=== PATIENT | female | born 1960 | race Caucasian/White ===

== ENCOUNTER 2017-12-02 12:36 | Emergency (ER) | payer BC, MEDICARE ==
[~2017-12-02] VITALS: Ht 165.1 cm; Wt 124.6 kg
[~2017-12-02 12:36] MED LIST: CEPH-571 PO
[2017-12-02] MEDS ORDERED: ketorolac trometh inj. 60 MG/2 ML VIAL IM ONE (12:55)
[2017-12-02] MEDS ORDERED: HYDROcodone/acetaminophen 10/325mg tab PO ONE (12:55)
[2017-12-02] MEDS ORDERED: ORPH100T2 PO (13:12)
[2017-12-02] MEDS ORDERED: HYDR-565 PO (13:12)
[2017-12-02] MEDS ORDERED: IBUP-1984 PO (13:12)
[2017-12-02] MEDS ORDERED: ondansetron 4mg rapidly disintigrating tab PO ONE (13:15)
[2017-12-02] MEDS ORDERED: ONDA8TAB9 PO (13:16)
[2017-12-02 13:29] VITALS: BP 143/86
== END 2017-12-02 13:35 | disposition home or self-care (01) ==
LOC: ER 12:37
DX: M54.5 Low back pain (principal); R11.2 Nausea with vomiting, unspecified; R19.7 Diarrhea, unspecified; I10 Essential (primary) hypertension; Z98.890 Other specified postprocedural states; Z88.8 Allergy status to other drugs, medicaments and biological substances; Z87.442 Personal history of urinary calculi
CPT/HCPCS: 96372; 99283; J1885